=== PATIENT | female | born 1965 | race Caucasian/White ===

== ENCOUNTER 2018-03-28 02:00 | Observation (INO) | payer BC ==
[2018-03-28] MEDS ORDERED: ONDANSETRON 4 MG/2 ML VIAL IVP STA (02:10)
[2018-03-28] MEDS ORDERED: ASPIRIN 81 MG PO STA (02:10)
[2018-03-28] MEDS ORDERED: NITROGLYCERIN OINT 1 INCH/GM PACKET TOPICAL STA (02:10)
[2018-03-28] MEDS ORDERED: MORPHINE SULFATE 4 MG/0.8 ML SYRINGE (INJ) IV STA (02:10)
[2018-03-28] MEDS ORDERED: SODIUM CHLORIDE 0.9% 1,000 ML IV STA (02:10)
--- NOTE | 2018-03-28 02:21 | ED ---
Chest Pain HPI - General Chief Complaint: Chest Pain Stated Complaint: chest pain Time Seen by Provider: 03/28/18 02:02 Source: patient Mode of arrival: EMS Limitations: no limitations - History of Present Illness Initial Comments: 52 years old female comes in with the chest pain, it started 1 AM, it was located on the left side of the chest is no radiation denies any nausea vomiting or cold sweats she was short winded a quite a bit at the time of the pain now pain has eased up quite a bit but she still has the pain and it gets worse with deep breaths. She is a smoker and she has smoked for about 32 years family history is unremarkable for any heart disease he has no history of gastroesophageal reflux. Denies any abdominal pain no frequency urgency dysuria no symptoms of TIA or CVA - Related Data Home Medications Medication Instructions Recorded Confirmed Albuterol Inhaler [Ventolin Hfa 1 - 2 puff INHALATION Q6HR PRN 03/28/18 03/28/18 Inhaler] Atorvastatin [Lipitor] 40 mg PO DAILY 03/28/18 03/28/18 Diclofenac Sodium [Voltaren] 75 mg PO BID 03/28/18 03/28/18 Levothyroxine Sodium 150 mcg PO DAILY 03/28/18 03/28/18 Montelukast Sodium [Singulair] 10 mg PO HS 03/28/18 03/28/18 Allergies Allergy/AdvReac Type Severity Reaction Status Date / Time Penicillins Allergy Unknown Verified 03/28/18 02:06 Childhood Review of Systems ROS Statement: Those systems with pertinent positive or pertinent negative responses have been documented in the HPI. ROS Other: All systems not noted in ROS Statement are negative. EKG Findings - EKG Comments: EKG Findings:: EKG is normal sinus rhythm ventricular rate is 91 IN interval is 150 QRS duration is 86 QT/QTc is 378/464 and 50 mL EKG does not reveal any ST elevation or ST depression Past Medical History Past Medical History: Asthma, Hyperlipidemia Additional Past Medical History / Comment(s): arthritis. hypothyroidism. History of Any Multi-Drug Resistant Organisms: None Reported Past Surgical History: Tubal Ligation Past Psychological History: No Psychological Hx Reported Smoking Status: Current every day smoker Past Alcohol Use History: Occasional Past Drug Use History: None Reported General Exam - General Exam Comments Initial Comments: General: The patient is awake and alert, in no distress, and does not appear acutely ill. Skin: Skin is warm and dry and no rashes or lesions are noted. Eye: Pupils are equal, round and reactive to light, extra-ocular movements are intact; there is normal conjunctiva bilaterally. Ears, nose, mouth and throat: There are moist mucous membranes and no oral lesions. Neck: The neck is supple, there is no tenderness or JVD. Cardiovascular: There is a regular rate and rhythm. No murmur, rub or gallop is appreciated. Respiratory: To auscultation bilateral, no wheezing no rhonchi no distress respiratory hou noticed Gastrointestinal: Soft, non-distended, non-tender abdomen without masses or organomegaly noted. There is no rebound or guarding present. Bowel sounds are unremarkable. Back: There is no tenderness to palpation in the midline. There is no obvious deformity. Musculoskeletal: Normal ROM, no tenderness, There is no pedal edema. There is no calf tenderness or swelling. No cords were appreciated. Neurological: CN II-XII intact, Cranial nerves III through XII are intact. There are no obvious motor or sensory deficits. Coordination appears grossly intact. Speech is normal. Psychiatric: Cooperative, appropriate mood & affect, normal judgment. Limitations: no limitations Course Vital Signs 03/28/18 03/28/18 02:01 03:08 Temperature 99.4 F Pulse Rate 91 73 Respiratory 16 16 Rate Blood Pressure 149/93 130/81 O2 Sat by Pulse 96 96 Oximetry During reassessment it was noticed that the white count is 11.2 d-dimer is negative compressive metabolic panel is negative troponin is normal and surgery chest x-ray these findings were discussed with the patient and informed patient that considering her risk factors she are to be admitted under observation and will consult cardiology she be admitted to Dr. Peralta service she understood that and agreed with the plan Disposition Clinical Impression: Chest pain Disposition: ADMITTED IP TO THIS HOSP Condition: Good Referrals: Dana Fagan MD [Primary Care Provider] - 1-2 days
[2018-03-28 02:26] LABS: Basophils # (A) 0.1 k/uL (0-0.2); Basophils % (A) 0 %; Eosinophils # (A) 0.3 k/uL (0-0.7); Eosinophils % (A) 2 %; HCT 40.9 % (34.0-46.0); HGB 13.4 gm/dL (11.4-16.0); Lymphocytes # (A) 2.3 k/uL (1.0-4.8); Lymphocytes % (A) 19 %; MCH 29.8 pg (25.0-35.0); MCHC 32.8 g/dL (31.0-37.0); MCV 90.9 fL (80.0-100.0); Mean Platelet Volume 7.9; Monocytes # (A) 0.6 k/uL (0-1.0); Monocytes % (A) 5 %; Neutrophils # (A) 8.3 k/uL (1.3-7.7); Neutrophils % (A) 71 %; Platelet Count 294 k/uL (150-450); WBC 11.7 k/uL (3.8-10.6)
[2018-03-28 02:37] LABS: ALT 36 U/L (9-52); AST 24 U/L (14-36); Albumin 3.6 g/dL (3.5-5.0); Alkaline Phosphatase 67 U/L (38-126); Anion Gap 10 mmol/L; Blood Urea Nitrogen 16 mg/dL (7-17); Calcium 8.9 mg/dL (8.4-10.2); Carbon Dioxide 26 mmol/L (22-30); Chloride 109 mmol/L (98-107); Glucose 112 mg/dL (74-99); Magnesium 2.2 mg/dL (1.6-2.3); Potassium 4.3 mmol/L (3.5-5.1); Sodium 145 mmol/L (137-145); Total Bilirubin 0.2 mg/dL (0.2-1.3); Total Protein 6.4 g/dL (6.3-8.2)
[2018-03-28 02:39] LABS: Creatine Kinase 132 U/L (30-135)
[2018-03-28 02:40] LABS: D-Dimer 0.37 mg/L FEU (<0.60); Partial Thromboplastin Time 23.1 sec (22.0-30.0); Prothrombin Time 9.6 sec (9.0-12.0)
--- NOTE | 2018-03-28 02:47 | XR ---
EXAMINATION TYPE: XR chest 2V DATE OF EXAM: 03/28/2018 COMPARISON: NONE HISTORY: Chest pain TECHNIQUE: Frontal and lateral views of the chest are obtained. FINDINGS: There is no heart failure nor confluent pneumonic infiltrate. There is mild coarsening of interstitial markings. There are chest leads. There is no evidence of pleural effusion. Bony thorax i s intact. IMPRESSION: No active cardiopulmonary disease. Normal heart.
[2018-03-28 02:52] LABS: Creatine Kinase MB 1.4 ng/mL (0.0-2.4); Troponin I <0.012 ng/mL (0.000-0.034)
[2018-03-28] MEDS ORDERED: MORPHINE SULFATE 4 MG/0.8 ML SYRINGE (INJ) IVP PRN (03:23)
[2018-03-28] MEDS ORDERED: NITROGLYCERIN SL TABS 0.4 MG TAB SUBLINGUAL PRN (03:23)
[2018-03-28] MEDS ORDERED: ALBUTEROL NEBULIZED 2.5 MG/3 ML INHALATION PRN (03:27)
[2018-03-28] MEDS ORDERED: LEVOTHYROXINE 75 MCG TAB PO SCH (06:30)
[2018-03-28 07:50] VITALS: BMI 31.9
[2018-03-28 08:34] LABS: Creatine Kinase 121 U/L (30-135)
[2018-03-28 08:47] LABS: Creatine Kinase MB 1.4 ng/mL (0.0-2.4); Troponin I <0.012 ng/mL (0.000-0.034)
[2018-03-28] MEDS ORDERED: LISINOPRIL 10 MG TAB PO SCH (09:00)
[2018-03-28] MEDS ORDERED: ETODOLAC 400 MG TAB PO SCH (09:00)
[2018-03-28] MEDS ORDERED: ATORVASTATIN 40 MG TAB PO SCH (09:00)
--- NOTE | 2018-03-28 10:44 | P.CRDCN ---
History of Present Illness Consult date: 03/28/18 Requesting physician: Winnie Peralta Consult reason: chest pain Chief complaint: Chest pain History of present illness: This is a 52-year-old female with history of hyperlipidemia, asthma, hypothyroidism, nicotine dependence, who presents to the hospital with symptoms of sharp stabbing chest pains with mild associated shortness of breath and diaphoresis. According to the patient, she still has some sharp pains in her chest, at times they worsen with deep breathing. Oriented to her the pain was quite severe she came to the emergency room for further evaluation. Chest x- ray on admission did not reveal any active cardiopulmonary disease. EKG shows normal sinus rhythm with no acute changes. Blood pressure 140/90 with a heart rate in the 60s, temperature 98.1, 93% on room air. White blood cell count 11.7 , hemoglobin 13.4, platelet count 294. D-dimer 0.37, sodium 145, potassium 4.3 , BUN 16, creatinine 0.7. Troponins negative 2. Examination this morning, patient still shows she has intermittent stabbing sharp pains in her chest. They last seconds and dissipate. Past Medical History Past Medical History: Asthma, Hyperlipidemia Additional Past Medical History / Comment(s): arthritis. hypothyroidism. History of Any Multi-Drug Resistant Organisms: None Reported Past Surgical History: Tubal Ligation Past Psychological History: No Psychological Hx Reported Smoking Status: Current every day smoker Past Alcohol Use History: Occasional Additional Past Alcohol Use History / Comment(s): smokes 10 cigs per day Past Drug Use History: None Reported Medications and Allergies Home Medications Medication Instructions Recorded Confirmed Type Albuterol Inhaler [Ventolin Hfa 1 - 2 puff INHALATION Q6HR PRN 03/28/18 History Inhaler] Atorvastatin [Lipitor] 40 mg PO DAILY 03/28/18 03/28/18 History Diclofenac Sodium [Voltaren] 75 mg PO BID 03/28/18 03/28/18 History Levothyroxine Sodium 150 mcg PO DAILY 03/28/18 03/28/18 History Montelukast Sodium [Singulair] 10 mg PO HS 03/28/18 03/28/18 History Allergies Allergy/AdvReac Type Severity Reaction Status Date / Time Penicillins Allergy Unknown Verified 03/28/18 02:06 Childhood Physical Exam Vitals: Vital Signs Temp Pulse Pulse Resp BP BP Pulse Ox 04/28/18 08:00 65 14 03/28/18 07:52 98.1 F 65 14 141/90 93 L 03/28/18 06:22 66 16 138/77 98 03/28/18 05:03 67 16 148/82 96 03/28/18 04:35 71 16 148/82 96 03/28/18 03:08 73 16 130/81 96 03/28/18 02:01 99.4 F 91 16 149/93 96 Intake and Output 03/27/18 03/28/18 03/28/18 22:59 06:59 14:59 Other: Voiding Method Toilet Weight 89.811 kg 89.811 kg PHYSICAL EXAMINATION: HEENT: Head is atraumatic, normocephalic. Pupils equal, round. Neck is supple. There is no elevated jugular venous pressure. HEART EXAMINATION: Heart S1, S2 normal. No murmur or gallop heard. CHEST EXAMINATION: Lungs reveal fine expiratory wheezing ABDOMEN: Soft, nontender. Bowel sounds are heard. No organomegaly noted. EXTREMITIES: 2+ peripheral pulses with no evidence of peripheral edema and no calf tenderness noted. NEUROLOGIC patient is awake, alert and oriented -3.] . Results 03/28/18 02:13 03/28/18 02:13 Cardiac Enzymes 03/28/18 03/28/18 03/28/18 Range/Units 02:13 02:13 07:42 AST 24 (14-36) U/L CK-MB (CK-2) 1.4 1.4 (0.0-2.4) ng/mL Troponin I <0.012 <0.012 (0.000-0.034) ng/mL Coagulation 03/28/18 Range/Units 02:13 PT 9.6 (9.0-12.0) sec APTT 23.1 (22.0-30.0) sec CBC 03/28/18 Range/Units 02:13 WBC 11.7 H (3.8-10.6) k/uL RBC 4.50 (3.80-5.40) m/uL Hgb 13.4 (11.4-16.0) gm/dL Hct 40.9 (34.0-46.0) % Plt Count 294 (150-450) k/uL Comprehensive Metabolic Panel 03/28/18 Range/Units 02:13 Sodium 145 (137-145) mmol/L Potassium 4.3 (3.5-5.1) mmol/L Chloride 109 H (98-107) mmol/L Carbon Dioxide 26 (22-30) mmol/L BUN 16 (7-17) mg/dL Creatinine 0.70 (0.52-1.04) mg/dL Glucose 112 H (74-99) mg/dL Calcium 8.9 (8.4-10.2) mg/dL AST 24 (14-36) U/L ALT 36 (9-52) U/L Alkaline Phosphatase 67 (38-126) U/L Total Protein 6.4 (6.3-8.2) g/dL Albumin 3.6 (3.5-5.0) g/dL Current Medications Generic Name Dose Route Start Last Admin Trade Name Freq PRN Reason Stop Dose Admin Albuterol Sulfate 2.5 mg 03/28/18 03:27 Ventolin Nebulized INHALATION Q6HR PRN Shortness Of Breath Aspirin 325 mg 03/29/18 09:00 Aspirin PO DAILY [facility] Atorvastatin Calcium 40 mg 03/28/18 09:00 Lipitor PO DAILY [facility] Etodolac 75 mg 03/28/18 09:00 Lodine PO BID [facility] Sodium Chloride 1,000 mls @ 100 mls/hr 03/28/18 02:10 03/28/18 02:20 Saline 0.9% IV 03/28/18 12:09 100 mls/hr .Q10H STA Administration Levothyroxine Sodium 150 mcg 03/28/18 06:30 Synthroid PO DAILY@0630 [facility] Lisinopril 10 mg 03/28/18 09:00 Zestril PO DAILY [facility] Montelukast Sodium 10 mg 03/28/18 21:00 Singulair PO HS [facility] Morphine Sulfate 2 mg 03/28/18 03:23 Morphine Sulfate (Inj) IVP Q5M PRN Chest Pain Nitroglycerin 0.4 mg 03/28/18 03:23 Nitrostat SUBLINGUAL Q5M PRN Chest Pain Intake and Output 03/27/18 03/28/18 03/28/18 22:59 06:59 14:59 Other: Voiding Method Toilet Weight 89.811 kg 89.811 kg Patient Weight 04/29/18 06:59 Weight 89.811 kg 03/28/18 02:13 03/28/18 02:13 EKG Interpretations (text) EKG shows normal sinus rhythm with no acute changes. Assessment and Plan Plan: Assessment and plan #1 chest pain, atypical for acute coronary syndrome. Troponins negative 2. EKG shows normal sinus rhythm with no acute changes. #2 hyperlipidemia #3 nicotine dependence #4 hypothyroidism #5 asthma Plan We will obtain a third troponin as well as echocardiogram with Doppler study. If negative patient may be able to be discharged home and we would recommend a stress test as an outpatient. Further recommendations to follow DNP note has been reviewed, I agree with a documented findings and plan of care. Patient was seen and examined.
--- NOTE | 2018-03-28 14:08 | ECHOF ---
Referral Reason:chest pain MEASUREMENTS -------- HEIGHT: 167.6 cm WEIGHT: 89.8 kg BP: 141/90 IVSd: 1.0 cm (0.6 - 1.1) LVIDd: 4.9 cm (3.9 - 5.3) LVPWd: 1.0 cm (0.6 - 1.1) EDV(Teich): 114 ml IVSs: 1.3 cm LVIDs: 3.1 cm LVPWs: 1.3 cm ESV(Teich): 38 ml EF(Teich): 67 % %FS: 37 % SV(Teich): 76 ml Ao asc: 3.6 cm RVIDd: 2.0 cm (< 3.3) LALs A4C: 5.1 cm LAAs A4C: 15.9 cm LAESV A-L A4C: 42 ml LAESV MOD A4C: 39 ml LALs A2C: 5.4 cm LAAs A2C: 18.3 cm LAESV A-L A2C: 53 ml LAESV MOD A2C: 50 ml LAESV(A-L): 49 ml LAESV Index (A-L): 24.43 ml/m Ao Diam: 3.0 cm (2.0 - 3.7) LA Diam: 3.2 cm (2.7 - 3.8) AV Cusp: 1.9 cm (1.5 - 2.6) MV E John: 0.99 m/s MV DecT: 245 ms MV Dec Stephenson: 4.1 m/s MV A John: 0.88 m/s MV E/A Ratio: 1.12 AV Vmax: 1.80 m/s AV maxP.08 mmHg AV Vmax: 2.08 m/s AV Vmean: 1.36 m/s AV maxP.28 mmHg AV meanP.82 mmHg AV Env.Ti: 308 ms AV VTI: 42.1 cm TR Vmax: 2.40 m/s TR maxP.95 mmHg RAP: 5.00 mmHg RVSP: 27.95 mmHg FINDINGS -------- Sinus rhythm with extra systolic beats. This was a technically good study. The left ventricular size is normal. Left ventricular wall thickness is normal. Overall left vent ricular systolic function is normal with, an EF between 65 - 70 %. The right ventricle is normal in size and function. Normal LA size by volume 22+/-6 ml/m2. The right atrium is normal in size. The aortic valve is trileaflet, and appears structurally normal. No aortic stenosis or regurgitation. The mitral valve is normal. There is trace mitral regurgitation. Trace tricuspid regurgitation present. Right ventricular systolic pressure is normal at < 35 mmHg. There is no evidence of pulmonary hypertension. The pulmonic valve was not well visualized. The aortic root size is normal. Normal inferior vena cava with normal inspiratory collapse consistent with estimated right atrial pre ssure of 5 mmHg. There is no pericardial effusion. CONCLUSIONS -------- 1. Sinus rhythm with extra systolic beats. 2. This was a technically good study. 3. The left ventricular size is normal. 4. Left ventricular wall thickness is normal. 5. Overall left ventricular systolic function is normal with, an EF between 65 - 70 %. 6. Normal LA size by volume 22+/-6 ml/m2. 7. The aortic valve is trileaflet, and appears structurally normal. No aortic stenosis or regurgitati on. 8. There is trace mitral regurgitation. 9. Trace tricuspid regurgitation present. 10. Right ventricular systolic pressure is normal at < 35 mmHg. 11. There is no evidence of pulmonary hypertension. 12. The pulmonic valve was not well visualized. 13. The aortic root size is normal. 14. There is no pericardial effusion. WOOL WASHING MACHINE OPERATOR: Nomi Cox RDCS
[2018-03-28 15:19] LABS: Creatine Kinase 112 U/L (30-135)
[2018-03-28] MEDS ORDERED: NICOTINE 14MG/24HR PATCH TRANSDERM SCH (15:30)
[2018-03-28 15:31] LABS: Creatine Kinase MB 1.4 ng/mL (0.0-2.4); Troponin I <0.012 ng/mL (0.000-0.034)
--- NOTE | 2018-03-28 15:34 | P.HPIM ---
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, she has recent history of upper respiratory tract infection, she had sore throat, dry coughing, sneezing and neck pain, all her upper respiratory symptoms are resolving now but the next day she developed this chest pain which she describes as sharp getting worse with deep breathing and coughing, which makes it going on with pleuritic chest pain No musculoskeletal tenderness at the chest pain site, severity is significantly improved from very severe to 2/10 currently She is currently smoker and she counseled that she wants to quit Emergency Dispatcher have evaluated the patient and cleared the patient for discharge, Her d-dimer is 0.37 which is within normal limits Review of Systems 14 point systemic review were negative excess was mentioned in the HPI Past Medical History Past Medical History: Asthma, Hyperlipidemia Additional Past Medical History / Comment(s): arthritis. hypothyroidism. History of Any Multi-Drug Resistant Organisms: None Reported Past Surgical History: Tubal Ligation Past Psychological History: No Psychological Hx Reported Smoking Status: Current every day smoker Past Alcohol Use History: Occasional Additional Past Alcohol Use History / Comment(s): smokes 10 cigs per day Past Drug Use History: None Reported Medications and Allergies Home Medications Medication Instructions Recorded Confirmed Type Albuterol Inhaler [Ventolin Hfa 1 - 2 puff INHALATION RT-QID PRN 03/28/18 History Inhaler] Atorvastatin [Lipitor] 40 mg PO DAILY 03/28/18 03/28/18 History Diclofenac Sodium [Voltaren] 75 mg PO AC-BID 03/28/18 03/28/18 History Levothyroxine Sodium 150 mcg PO DAILY 03/28/18 03/28/18 History Montelukast Sodium [Singulair] 10 mg PO HS 03/28/18 03/28/18 History Allergies Allergy/AdvReac Type Severity Reaction Status Date / Time Penicillins Allergy Unknown Verified 03/28/18 10:45 Childhood Physical Exam Vitals: Vital Signs Temp Pulse Pulse Pulse Resp BP BP 03/28/18 12:00 98.0 F 84 65 14 136/76 03/28/18 08:00 65 14 03/28/18 07:52 98.1 F 65 14 141/90 03/28/18 06:22 66 16 138/77 03/28/18 05:03 67 16 148/82 03/28/18 04:35 71 16 148/82 03/28/18 03:08 73 16 130/81 03/28/18 02:01 99.4 F 91 16 149/93 Pulse Ox 03/28/18 12:00 93 L 03/28/18 08:00 03/28/18 07:52 93 L 03/28/18 06:22 98 03/28/18 05:03 96 03/28/18 04:35 96 03/28/18 03:08 96 03/28/18 02:01 96 Intake and Output 03/28/18 03/28/18 03/28/18 06:59 14:59 22:59 Other: Voiding Method Toilet Weight 89.811 kg 89.811 kg Constitutional: No acute distress, conversant, pleasant Eyes: Anicteric sclerae, moist conjunctiva, no lid-lag PERRLA ENMT: NC/AT Oropharynx clear, no erythema, exudates Neck: Supple, FROM, no masses, or JVD No carotid bruits No thyromegaly Lungs: Clear to auscultation Clear to percussion, no chest wall tenderness Normal respiratory effort, no accessory muscle use Cardiovascular: Heart regular in rate and rhythm, No murmurs, gallops, or rubs No peripheral edema Abdominal: Soft Nontender, no guarding, rebound or rigidity Abdomen moving with respiration Normoactive bowel sounds No hepatomegaly, No splenomegaly No palpable mass No abdominal wall hernia noted Skin: Normal temperature, tone, texture, turgor No induration No subcutaneous nodules No rash, lesions No ulcers Extremities: No digital cyanosis No clubbing Pedal pulses intact and symmetrical Radial pulses intact and symmetrical Normal gait and station No calf tenderness Psychiatric: Alert and oriented to person, place and time Appropriate affect Intact judgement Neuro: Muscles Strength 5/5 in all 4 extremities Sensation to light touch grossly present throughout Cranial nerves II-XII grossly intact No focal sensory deficits Results CBC & Chem 7: 03/28/18 02:13 03/28/18 02:13 Labs: Abnormal Lab Results - Last 24 Hours (Table) 03/28/18 03/28/18 Range/Units 02:13 02:13 WBC 11.7 H (3.8-10.6) k/uL Neutrophils # 8.3 H (1.3-7.7) k/uL Chloride 109 H (98-107) mmol/L Glucose 112 H (74-99) mg/dL Thrombosis Risk Factor Assmnt - Choose All That Apply Any of the Below Risk Factors Present?: Yes Each Factor Represents 1 point: Age 41-60 years, Obesity (BMI >25) Other Risk Factors: No Other congenital or acquired thrombophilia - If yes, enter type in comment: No Thrombosis Risk Factor Assessment Total Risk Factor Score: 2 Thrombosis Risk Factor Assessment Level: Low Risk Assessment and Plan Assessment: Pleuritic chest pain Upper respiratory tract infection, mostly viral Nicotine dependence Plan: Cardiologic consultation is appreciated, Corry was done and reviewed, patient was cleared by cardiology team for discharge Most likely the patient had pleuritic chest pain secondary to viral infection 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
[2018-03-28 16:27] VITALS: BP 139/94; PULSE 75; RESP 16; TEMP 98.3
[2018-03-28] MEDS ORDERED: MONTELUKAST 10 MG TAB PO SCH (21:00)
[2018-03-29] MEDS ORDERED: ASPIRIN 325 MG TAB PO SCH (09:00)
--- NOTE | 2018-04-06 00:37 | P.DS ---
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, she has recent history of upper respiratory tract infection, she had sore throat, dry coughing, sneezing and neck pain, all her upper respiratory symptoms are resolving now but the next day she developed chest pain which she describes as sharp getting worse with deep breathing and coughing, which makes it going on with pleuritic chest pain, No musculoskeletal tenderness at the chest pain site, severity is significantly improved from very severe to 2/10 Java Lead Architect have evaluated the patient and cleared the patient for discharge, Her d-dimer is 0.37 which is within normal limits Cardiologic consultation is appreciated, Echo was done and reviewed, Most likely the patient had pleuritic chest pain secondary to viral infection 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 Wells score for PE is 0 and D-dimer negative which makes it unlikely to have PE , and testing that has more risks than benefits Continue with symptomatic treatment, her pain is significantly improved and patient is lying comfortably in the bed Her URT infection signs and symptoms are improving, influenza virus: undetected pt was updated with the problem list and management plan and she verbalized understanding and acceptance pt is found stable and can be discharged home but she needs f/u as outpt , pt agrees to f/u with pcp within one week her number (aqrd) Constitutional: No acute distress, conversant, pleasant Eyes: Anicteric sclerae, moist conjunctiva, no lid-lag PERRLA ENMT: NC/AT Oropharynx clear, no erythema, exudates Neck: Supple, FROM, no masses, or JVD No carotid bruits No thyromegaly Lungs: Clear to auscultation Clear to percussion, no chest wall tenderness Normal respiratory effort, no accessory muscle use Cardiovascular: Heart regular in rate and rhythm, No murmurs, gallops, or rubs No peripheral edema Abdominal: Soft Nontender, no guarding, rebound or rigidity Abdomen moving with respiration Normoactive bowel sounds No hepatomegaly, No splenomegaly No palpable mass No abdominal wall hernia noted Skin: Normal temperature, tone, texture, turgor No induration No subcutaneous nodules No rash, lesions No ulcers Extremities: No digital cyanosis No clubbing Pedal pulses intact and symmetrical Radial pulses intact and symmetrical Normal gait and station No calf tenderness Psychiatric: Alert and oriented to person, place and time Appropriate affect Intact judgement Neuro: Muscles Strength 5/5 in all 4 extremities Sensation to light touch grossly present throughout Cranial nerves II-XII grossly intact No focal sensory deficits Patient Condition at Discharge: Good Plan - Discharge Summary Discharge Rx Participant: No New Discharge Prescriptions: New Aspirin 325 mg PO DAILY #30 tab Lisinopril [Zestril] 10 mg PO DAILY #30 tab Nicotine 14Mg/24Hr Patch [Habitrol] 1 patch TRANSDERM DAILY #30 patch Continue Montelukast Sodium [Singulair] 10 mg PO HS Albuterol Inhaler [Ventolin Hfa Inhaler] 1 - 2 puff INHALATION RT-QID PRN PRN Reason: Shortness Of Breath Levothyroxine Sodium 150 mcg PO DAILY Atorvastatin [Lipitor] 40 mg PO DAILY Discharge Medication List Albuterol Inhaler [Ventolin Hfa Inhaler] 1 - 2 puff INHALATION RT-QID PRN [History] Aspirin 325 mg PO DAILY #30 tab 03/28/18 [Rx] Atorvastatin [Lipitor] 40 mg PO DAILY 03/28/18 [History] Levothyroxine Sodium 150 mcg PO DAILY 03/28/18 [History] Lisinopril [Zestril] 10 mg PO DAILY #30 tab 03/28/18 [Rx] Montelukast Sodium [Singulair] 10 mg PO HS 03/28/18 [History] Nicotine 14Mg/24Hr Patch [Habitrol] 1 patch TRANSDERM DAILY #30 patch 03/28/18 [ Rx] Follow up Appointment(s)/Referral(s): Dana Fagan MD [Primary Care Provider] - 1 Week (we recomment to check you blood test with your doctor, including you white blood cell count. (WBC high) we recommend to chech your kidney function adn electrolytes with your doctor in 1-2 weeks) Maury Lackey MD [STAFF PHYSICIAN] - 1 Week (we recomment to follow up with community relations liaison for outpatient stress test, ) Activity/Diet/Wound Care/Special Instructions: cardiac diet activity as tolerated Discharge Disposition: HOME SELF-CARE
== END 2018-03-28 17:54 | disposition home or self-care (01) ==
LOC: EC 02:00 → 3OBS 03:23
PROVIDERS: ADMIT Hospitalist; ATTEND Hospitalist
DX: R07.81 Pleurodynia (principal); Z71.6 Tobacco abuse counseling; E03.9 Hypothyroidism, unspecified; E78.5 Hyperlipidemia, unspecified; E66.9 Obesity, unspecified; Z68.32 Body mass index [BMI] 32.0-32.9, adult; J45.909 Unspecified asthma, uncomplicated; F17.210 Nicotine dependence, cigarettes, uncomplicated; Z98.51 Tubal ligation status; Z88.0 Allergy status to penicillin; Z79.890 Hormone replacement therapy; Z79.899 Other long term (current) drug therapy
CPT/HCPCS: 96376; 96374; 96375; 99285; 36415; 93005; 93306; 85379; 83880; 80053; 82550; 82553; 83735; 84484; 85025; 85610; 85730; 87502; 71046; G0378; S4990; J2405; J2270

== ENCOUNTER → 2018-04-17 | Outpatient (CLI) | payer BC ==
--- NOTE | 2018-04-17 11:45 | P.STRESS ---
- Stress Test Note Stress Test Results/Findings: Exam Performed: stress test Exam Date: 04/17/18 Reason for Exam: Chest Pain Height: 5 ft 6 in Weight: 87.09 kg Protocol: Tru Stage: 2 Duration of Exercise: 6:30 Resting Heart Rate: 60 Resting Blood Pressure: 160/96 Maximum Achieved Heart Rate: 153 Maximum Achieved Blood Pressure: 190/82 85% PMHR: 144 100% PMHR: 169 METS: 7.9 Technologist Comment: Stress Test Results/Findings: Baseline heart rate 60 beats a minute, Baseline blood pressure 160 196. His mercury Patient exercised on a Tru protocol for 6 minutes 30 seconds achieving a peak heart rate of 153 beats a minute. Shortness of breath noted There is no ECG evidence for ischemia Baseline ECG was normal no arrhythmias were noted. Impression Average exercise capacity Elevated blood pressure readings No ECG is for ischemia or arrhythmia.
== END | disposition home or self-care (01) ==
LOC: RADNMMAIN 09:44
PROVIDERS: ATTEND Internal Medicine
DX: I10 Essential (primary) hypertension (principal)
CPT/HCPCS: 93017

== ENCOUNTER → 2018-05-05 | Outpatient (CLI) | payer BC ==
--- NOTE | 2018-05-06 09:52 | MM ---
Reason for exam: screening (asymptomatic). Last mammogram was performed 2 years and 5 months ago. History: Took hormonal contraceptives for 2 years. Physical Findings: A clinical breast exam by your physician is recommended on an annual basis and results should be correlated with mammographic findings. MG Screening Mammo w CAD Bilateral CC and MLO view(s) were taken. Prior study comparison: December 04, 2015, bilateral MG screening mammo w CAD. March 15, 2015, left breast MG diagnostic mammo LT w CAD. The breast tissue is heterogeneously dense. This may lower the sensitivity of mammography. There is no discrete abnormality. No significant changes when compared with prior studies. ASSESSMENT: Negative, BI-RAD 1 RECOMMENDATION: Routine screening mammogram of both breasts in 1 year.
== END | disposition home or self-care (01) ==
LOC: RADMAMWWP 07:30
PROVIDERS: ATTEND Internal Medicine
DX: Z12.31 Encounter for screening mammogram for malignant neoplasm of breast (principal)
CPT/HCPCS: 77067

== ENCOUNTER 2019-12-18 17:21 | Emergency (ER) | payer BC ==
[2019-12-18 17:27] VITALS: BP 174/115; PULSE 129; RESP 18; TEMP 98.3
--- NOTE | 2019-12-18 17:47 | ED ---
General Adult HPI - General Chief complaint: Skin/Abscess/Foreign Body Stated complaint: rash/poss med reaction Time Seen by Provider: 12/18/19 17:27 Source: patient Mode of arrival: ambulatory Limitations: no limitations - History of Present Illness Initial comments: Dictation was produced using [employer] dictation software. please excuse any grammatical, word or spelling errors. Chief Complaint: 54-year-old female presents with rash. History of Present Illness: Patient is a 54-year-old female presents today with acute rash. Patient was spending some time in a which showed when shortly after exiting the which should she experience a rash covering her upper extremities her face and her upper chest. Patient was concerned that perhaps she was experiencing a drug ALLERGY. She takes lisinopril per she called her daughter who was a nurse. She was concerned about her symptoms and decided to come to the emergency department. She denies any tongue swelling, throat swelling or lip swelling. States his rash was itchy in her skin appeared red. She took 2 tabs of Benadryl at home and her symptoms improved. Patient has any rash at this time. The ROS documented in this emergency department record has been reviewed and confirmed by me. Those systems with pertinent positive or negative responses have been documented in the HPI. All other systems are other negative and/or noncontributory. PHYSICAL EXAM: General Impression: Alert and oriented x3, not in acute distress HEENT: Normocephalic atraumatic, extra-ocular movements intact, pupils equal and reactive to light bilaterally, mucous membranes moist. Cardiovascular: Heart regular rate and rhythm, S1&S2 audible, no murmurs, rubs or gallops Chest: Lungs clear to auscultation bilaterally, no rhonchi, no wheeze, no rales Abdomen: Bowel sounds present, abdomen soft, non-tender, non-distended, no organomegaly Musculoskeletal: Pulses present and equal in all extremities, no peripheral edema Motor: no focal deficits noted Neurological: CN II-XII grossly intact, no focal motor or sensory deficits noted Skin: Intact with no visualized rashes, no conjunctival lesions, no rash noted to the abdomen back and lower extremities, no oral lesions, no rash noted to the palms or soles of the feet. Psych: Normal affect and mood ED course: 54-year-old female presents with acute rash. Patient does not have this rash currently on physical examination. Clinical presentation likely secondary to contact dermatitis. As upon arrival are within acceptable limits. Patient was offered Atarax for symptom control P she is told to be mindful of which she is exposed to case she spritzer recurrence of symptoms. She is advised to follow-up with primary care physician upon discharge. Discussed with patient the signs and symptoms of angioedema from lisinopril. All questions answered. Patient clear for discharge. - Related Data Home Medications Medication Instructions Recorded Confirmed Albuterol Inhaler [Ventolin Hfa 1 - 2 puff INHALATION RT-QID PRN 03/28/18 03/28/18 Inhaler] Atorvastatin [Lipitor] 40 mg PO DAILY 03/28/18 03/28/18 Levothyroxine Sodium 150 mcg PO DAILY 03/28/18 03/28/18 Montelukast Sodium [Singulair] 10 mg PO HS 03/28/18 03/28/18 Previous Rx's Medication Instructions Recorded Aspirin 325 mg PO DAILY #30 tab 03/28/18 Lisinopril [Zestril] 10 mg PO DAILY #30 tab 03/28/18 Nicotine 14Mg/24Hr Patch [Habitrol] 1 patch TRANSDERM DAILY #30 patch 03/28/18 Allergies Allergy/AdvReac Type Severity Reaction Status Date / Time Penicillins Allergy Unknown Verified 12/18/19 17:23 Childhood Review of Systems ROS Statement: Those systems with pertinent positive or pertinent negative responses have been documented in the HPI. ROS Other: All systems not noted in ROS Statement are negative. Past Medical History Past Medical History: Asthma, Hyperlipidemia, Hypertension Additional Past Medical History / Comment(s): arthritis. hypothyroidism. History of Any Multi-Drug Resistant Organisms: None Reported Past Surgical History: Tubal Ligation Past Psychological History: No Psychological Hx Reported Smoking Status: Current every day smoker Past Alcohol Use History: Occasional Past Drug Use History: None Reported General Exam Limitations: no limitations Course Vital Signs 12/18/19 17:23 Temperature 98.3 F Pulse Rate 129 H Respiratory 18 Rate Blood Pressure 174/115 O2 Sat by Pulse 97 Oximetry Disposition Clinical Impression: Rash Disposition: HOME SELF-CARE Condition: Good Instructions (If sedation given, give patient instructions): Acute Rash (ED) Is patient prescribed a controlled substance at d/c from ED?: No Referrals: Dana Fagan MD [Primary Care Provider] - 1-2 days Time of Disposition: :47
== END 2019-12-18 17:55 | disposition home or self-care (01) ==
LOC: EC 17:21
DX: R21 Rash and other nonspecific skin eruption (principal); J45.909 Unspecified asthma, uncomplicated; E78.5 Hyperlipidemia, unspecified; E03.9 Hypothyroidism, unspecified; F17.200 Nicotine dependence, unspecified, uncomplicated; Z79.890 Hormone replacement therapy; Z79.899 Other long term (current) drug therapy
CPT/HCPCS: 99282

== ENCOUNTER → 2020-10-06 | Outpatient (CLI) | payer BC | END | disposition home or self-care (01) | LOC: LABWHC1 14:01 | PROVIDERS: ATTEND Internal Medicine | DX: Z20.828 Contact with and (suspected) exposure to other viral communicable diseases (principal) | CPT/HCPCS: U0003; C9803 ==